=== PATIENT | female | born 1980 | race Caucasian/White ===

== ENCOUNTER 2017-02-22 07:28 | Emergency (ER) | payer BC ==
[2017-02-22 07:50] VITALS: BP 118/66
[2017-02-22] MEDS ORDERED: Ondansetron ODT TAB* 4 MG PO ONE (08:32)
[2017-02-22] MEDS ORDERED: HYDROcodone/ACETAMIN 5-325 MG* 1 TAB PO ONE (08:32)
--- NOTE | 2017-02-22 08:41 | UC ---
Back Pain HPI - HPI Summary HPI Summary: 36 yo female with the onset of colicky right flank pain about 8PM yesterday urgency and frequency of urination diaphoresis nausea no fever no vomiting some relief with motrin - History of Current Complaint Chief Complaint: UCGU Stated Complaint: BACK PAIN Time Seen by Provider: 02/22/17 07:52 Hx Obtained From: Patient Hx Last Menstrual Period: 02/07/17 Onset/Duration: Sudden Onset, Lasting Hours Timing: Constant Severity Initially: Moderate Severity Currently: Severe Pain Intensity: 8 Pain Scale Used: 0-10 Numeric Back Pain: Is Discrete @ - right CVA, Radiates To - right flank/vagina Character: Sharp, Spasmodic Aggravating: Nothing Alleviating: OTC Meds - Allergies/Home Medications Allergies/Adverse Reactions: Allergies Allergy/AdvReac Type Severity Reaction Status Date / Time No Known Allergies Allergy Verified 02/22/17 07:43 Home Medications: Home Medications Multiple Vitamins W/ Minerals [Hair Skin and Nails Formu] 1 tab PO DAILY [History Confirmed 02/22/17] PMH/Surg Hx/FS Hx/Imm Hx Previously Healthy: Yes Endocrine History Of: Denies: Diabetes, Thyroid Disease Cardiovascular History Of: Denies: Cardiac Disorders, Hypertension Respiratory History Of: Denies: COPD, Asthma GI/ History Of: Denies: Ulcer - Surgical History Surgical History: None - Family History Known Family History: Positive: Hypertension, Other - dad has kidney stones Negative: Cardiac Disease - Social History Alcohol Use: None Substance Use Type: None Smoking Status (MU): Former Smoker - Immunization History Most Recent Influenza Vaccination: 08/23/14 Most Recent Tetanus Shot: 12/17/14 Most Recent Pneumonia Vaccination: none Review of Systems Constitutional: Negative Skin: Negative Eyes: Negative ENT: Negative Respiratory: Negative Cardiovascular: Negative Gastrointestinal: Other - right flank pain Genitourinary: Frequency, Urgency Motor: Negative Neurovascular: Negative Musculoskeletal: Negative Neurological: Negative Psychological: Negative All Other Systems Reviewed And Are Negative: Yes Physical Exam Triage Information Reviewed: Yes Appearance: Well-Appearing, Well-Nourished, Pain Distress Vital Signs: Initial Vital Signs Temp 98.5 F 02/22/17 07:36 Pulse 86 02/22/17 07:36 Resp 20 02/22/17 07:36 BP 118/66 02/22/17 07:36 Pulse Ox 100 02/22/17 07:36 Vital Signs Reviewed: Yes Eyes: Positive: Conjunctiva Clear ENT: Positive: Hearing grossly normal. Negative: Tonsillar exudate, Trismus, Muffled/hoarse voice Neck: Positive: Supple, Nontender Respiratory: Positive: Lungs clear, Normal breath sounds, No respiratory distress Cardiovascular: Positive: RRR, No Murmur Abdomen Description: Positive: Nontender, No Organomegaly, Soft, CVA Tenderness (R) Bowel Sounds: Positive: Present Musculoskeletal: Positive: ROM Intact, No Edema Neurological: Positive: Alert, Muscle Tone Normal Psychological Exam: Normal Skin Exam: Normal Re-Evaluation - Re-Evaluation First Eval Re-Evaluation Time: 09:10 Change: Improved - pain still 04/03, awaiting CT results Second Eval Re-Evaluation Time: 10:50 Change: Improved - PAIN 01/01 Back Pain Course/Dx - Differential Dx/Diagnosis Provider Diagnoses: RIGHT UROLITHIASIS. MULTIPLE SMALL KIDNEY STONES Discharge - Discharge Plan Condition: Stable Disposition: HOME Prescriptions: HYDROcodone/ACETAMIN 5-325 MG* [[place] 5-325 TAB*] 1 tab PO Q4H PRN #15 tab MDD 6 PRN Reason: Pain - Severe Ibuprofen TAB* [Motrin TAB*] 600 mg PO QID #40 tab Ondansetron TAB* [Zofran Tab*] 4 mg PO Q6H PRN #10 tab PRN Reason: Nausea Tamsulosin CAP* [Flomax CAP*] 0.4 mg PO BEDTIME #5 cap Patient Education Materials: Kidney Stones (ED) Referrals: Luc Hadley MD [Medical Doctor] - As Soon As Possible (call today and set up appt UROLOGIST) Additional Instructions: to ER for: 1. fever >101 2. pain not controlled by pain medicine 3. vomiting and can't tolerate fluids or take meds drink 8-12 glasses of water /day take motrin 4x day until stone passes stop flomax once stone is passed
[2017-02-22] MEDS ORDERED: Ketorolac INJ* 30 MG/ML 1 ML VIAL IM ONE (09:09)
--- NOTE | 2017-02-22 09:35 | RAD ---
INDICATION: Right flank abdominal pain. COMPARISON: There are no prior studies available for comparison. TECHNIQUE: A CT scan of the abdomen and pelvis was performed without intravenous or oral contrast. Contiguous axial sections were obtained from the lung bases through the symphysis pubis. Images were reconstructed in the coronal and sagittal planes. FINDINGS: The lung bases are clear. No pleural effusion is present. The liver and spleen are within normal limits in size without significant focal abnormality on this noncontrast study. No calcified gallstones are seen. The pancreas appears to be within normal limits in size. The adrenal glands appear within normal limits. There multiple small bilateral renal calculi measuring up to 3 mm in size. There is enlargement of the right kidney with perinephric stranding and fluid. There is dilatation of the renal calyces pelvis and ureter. There is a 3 mm calcification in the region of the right ureterovesical junction most consistent with a calculus in the distal ureter. This causes moderate to severe right hydronephrosis. The aorta is normal in caliber without significant calcific plaque. No significant enlarged retroperitoneal lymph nodes are seen. The stomach, small and large bowel appear nondistended. The appendix is within normal limits. There is no evidence for diverticulitis or colitis. There is a moderate amount retained stool. The uterus is retroverted and normal in size. There is a small amount of free intraperitoneal fluid present dependently within the pelvis. No free intraperitoneal air is seen. No significant focal osseous abnormality is seen. IMPRESSION: 1. FINDINGS MOST CONSISTENT WITH A 3 MM CALCULUS AT THE RIGHT URETER URETEROVESICAL JUNCTION CAUSING MODERATE TO SEVERE HYDRONEPHROSIS. THERE ARE SEVERAL SMALL ADDITIONAL BILATERAL RENAL CALCULI. 2. RETROVERTED UTERUS AND SMALL AMOUNT OF FREE INTRAPERITONEAL FLUID IN THE PELVIS.
== END 2017-02-22 10:16 | disposition home or self-care (01) ==
LOC: UCEAST 07:28
DX: N13.2 Hydronephrosis with renal and ureteral calculous obstruction (principal); Z32.02 Encounter for pregnancy test, result negative; Z87.891 Personal history of nicotine dependence
CPT/HCPCS: 74176; 81003; 84702; 87077; 87086; 87186; 96372; 99212; A9270-GY; G0463; J1885

== ENCOUNTER 2017-02-26 14:46 | Observation (INO) | payer BC ==
[2017-02-26] MEDS ORDERED: NS 0.9% 1000 ML* 2,000 ML IV ONE (14:58)
[2017-02-26 16:53] LABS: Hematocrit 33 % (35-47); Hemoglobin 11.3 g/dl (12.0-16.0); Mean Corpuscular HGB Conc 34 g/dl (31-36); Mean Corpuscular Hemoglobin 30 pg (27-31); Mean Corpuscular Volume 87 fL (80-97); Mean Platelet Volume 9 um3 (7.4-10.4); Red Cell Distribution Width 14 % (10.5-15); White Blood Count 17.7 10^3/ul (3.5-10.8)
[2017-02-26 16:56] LABS: Urine Bacteria Absent (Absent); Urine Bilirubin Negative (Negative); Urine Glucose Negative (Negative); Urine Nitrite Negative (Negative)
[2017-02-26 16:58] LABS: Add Diff/Slide Review? Slide Review Added; Comments Flag Yes
[2017-02-26] MEDS ORDERED: cefTRIAXone VIAL(*) 1,000 MG VIAL ONE (17:01)
[2017-02-26 17:20] LABS: Albumin 3.2 g/dL (3.2-5.2); BUN/Creatinine Ratio 23.8 (8-20); EGFR African American 64.9 (>60); EGFR Non-African American 50.5 (>60); Globulin 3.4 g/dL (2-4); Potassium 3.3 mmol/L (3.5-5.0); Total Bilirubin 0.6 mg/dL (0.2-1.0); Total Protein 6.6 g/dL (6.4-8.9)
[2017-02-26] MEDS ORDERED: Potassium Chlor TAB* 20 MEQ TAB.ER PO ONE (18:30)
[2017-02-26] MEDS: Acetaminophen TAB* 325 MG PO PRN (20:10)
--- NOTE | 2017-02-26 21:14 | RAD ---
HISTORY: Abnormal labs, UTI COMPARISONS: February 22, 2017 CT TECHNIQUE: Multiple transverse and longitudinal ultrasound images were obtained of the kidneys and bladder using grayscale and color Doppler imaging. FINDINGS: RIGHT KIDNEY: The right kidney is echogenic and enlarged. The hydronephrosis noted on the previous CT is no longer evident. There is no appreciable nephrolithiasis on the submitted images. The right kidney measures 14.4 x 7.6 x 7.7 cm. There are no loculated fluid collections. There is no perinephric fluid collection. LEFT KIDNEY: The left kidney is normal in shape, size, contour, and echogenicity. There is no hydronephrosis or nephrolithiasis. The left kidney measures 11.3 x 5.3 x 6.5 cm. BLADDER: The bladder is smooth in contour. Bilateral ureteral jets are identified. AORTA AND IVC: No images are submitted of the vasculature. RETROPERITONEUM: Unremarkable. OTHER: None. IMPRESSION: THE RIGHT KIDNEY IS EDEMATOUS, CONSISTENT WITH THE HISTORY OF PYELONEPHRITIS. THE HYDRONEPHROSIS NOTED ON THE PREVIOUS EXAMINATION IS NO LONGER EVIDENT. BILATERAL URETERAL JETS ARE IDENTIFIED.
[2017-02-26] MEDS: NS 0.9% 1000 ML* 1,000 ML IV SCH (21:25)
--- NOTE | 2017-02-26 21:31 | HP ---
HOSPITAL MEDICINE HISTORY AND PHYSICAL: DATE OF ADMISSION: 02/26/17 PRIMARY CARE PHYSICIAN: Herb Castillo MD ATTENDING PHYSICIAN: Duyen Jensen DO *(dictation provided by Andra Villasenor NP) CHIEF COMPLIANT: Concern for possible rigors in the patient with recent kidney stones and hydronephrosis. HISTORY OF PRESENT ILLNESS: Ms. Yanez is a 36-year-old female with no significant past medical history who presented to the hospital today from Dr. Castillo's office out of concern for lightheadedness and question of rigors in the setting of recent kidney stone with hydronephrosis. Ms. Yanez states that she started to feel unwell on Wednesday of this past week. She had a sudden onset of severe pain, which seemed to be emanating from her pelvis and then into her back. She was in excruciating pain when she arrived to community health care at 7 a.m. on Wednesday morning. A CT of the abdomen of the pelvis at that time revealed that she did have a kidney stone with hydronephrosis. She followed up with Dr. Castillo, who saw her and apparently felt that the stone had passed based on his review and workup. I do not have records from Dr. Castillo to confirm this. Regardless, the patient states that she went home from Dr. Castillo's office, but was called thereafter to say that her urine culture had become positive. At that point, the patient was started on cephalexin. She states she started this medication on Wednesday night, and has taken it regularly since then. She stopped having pain on Wednesday; however, she has continued to feel lightheaded. She has been alternating with feeling warm and then feeling cold and shaking. She appears to be describing fevers with rigors , but she did not take her temperature. She followed up with Dr. Castillo's office today, and there was concern that in addition to kidney stone there was some free intraperitoneal fluid as well as the fact that the patient seemed to be evidencing sepsis criteria. Per the report from the patient, Dr. Castillo did 2 ultrasounds in the office, which did not show kidney stone or obstruction. In the emergency room, Ms. Yanez has a white blood cell count elevated to 17.7. She has thrombocytopenia with the platelet count of 64. She has a sodium of 129, potassium of 3.3, BUN and creatinine elevated to 29/1.22. Her urine shows only 1+ leukocyte esterase with no bacteria. PAST MEDICAL HISTORY: None. MEDICATIONS: Ibuprofen p.r.n. and multivitamin p.o. daily. ALLERGIES: None. FAMILY HISTORY: The patient reports her father and mother are both alive. Her dad has history of kidney stones and mom is otherwise healthy. SOCIAL HISTORY: No report of alcohol, tobacco, or drug use. She lives with her , who is her healthcare proxy. REVIEW OF SYSTEMS: A 14-point review of systems was completed with Ms. Yanez and all those not mentioned above were negative. PHYSICAL EXAMINATION GENERAL: Ms. Yanez is sitting up in the stretcher. She is in no acute distress. She appears calm and pleasant. VITAL SIGNS: Temperature 98.9, pulse rate 130, respiratory rate 16, O2 saturation 100% on room air, and blood pressure 137/73. LUNGS: Clear to auscultation bilaterally with no accessory muscle use and good aeration. HEART: S1 and S2. No murmur, rub, or gallop and regular. ABDOMEN: Soft. It is nontender with bowel sounds positive x4. EXTREMITIES: No cyanosis or edema. NEURO: She is alert and oriented x3. She moves all extremities equally. There is no facial asymmetry or focal weakness. Extraocular movements are intact. SKIN: Intact. DIAGNOSTIC STUDIES/LAB DATA: WBC 17.7, hemoglobin 11.3, hematocrit 33, and platelet count 64. Sodium 129, potassium 3.3, chloride 97, serum bicarbonate 23 , BUN 29, creatinine 1.22, glucose 114. Urine shows +1 leuk esterase, present squamous cells and no bacteria. Review of previous specimen shows E. coli from 02/22/17 that is sensitive to cephalosporins. EKG shows heart rate of about 115 with no evidence of ischemia. ASSESSMENT AND PLAN: Ms. Yanez is a 36-year-old female with no significant past medical history, who was recently diagnosed with kidney stone with hydronephrosis earlier this week and now presents with concern for symptoms of sepsis. Our plans are for observation in the hospital for the followin. Sepsis secondary to pyelonephritis: Per the report verbally from Dr. Kraft and from the patient, the patient did have ultrasounds at Dr. Castillo's office , which confirmed presence of ureteral jets. In an effort to confirm this definitively for this patient who is septic and at high risk for complications, plan to repeat a ultrasound now. The patient will be treated with ceftriaxone while inpatient given the severity of her illness. She will have continued IV fluids overnight. Plan to check blood cultures. Urine cultures were already being sent. Lactic acid is normal. 2. Acute kidney injury: I do not have a baseline creatinine for Ms. Yanez , but I have no reason to suspect that she has chronic kidney disease at 36 years of age with no other prior medical history. I suspect this is secondary to dehydration. At this point, plan to rehydrate. She has had 2 L of IV fluids and we will continue with maintenance fluids overnight and recheck all her labs tomorrow. 3. Hypokalemia: Plan to replete and recheck in the a.m. 4. Thrombocytopenia: The patient's platelet count is 64, last known from 2014 was normal at 236. I suspect this is all reactive secondary to her sepsis, but we will recheck all her labs tomorrow. I am holding chemical prophylaxis for DVT and using SCDs only. 5. DVT prophylaxis: With SCDs. 6. Code status: Full code. TIME SPENT: Approximately 60 minutes was spent in the admission of this patient , more than half of the time was spent with the patient at the bedside reviewing the events leading up to this hospitalization, performing the physical examination, and reviewing my plan of care. ANDRA VILLASENOR NP CC: Herb Castillo MD * [id number]/[facility] #: [id number] ISIDRO
--- NOTE | 2017-02-26 23:15 | ED ---
Elio Sampson Benjamin, scribed for Evans Kraft MD on 02/26/17 at 1646 . GI/ HPI - HPI Summary HPI Summary: 36yo female who presents with continued complaints of UTI symptoms. States she had kidney stone and passed it yesterday. Pt reports cycles of chills and hot/ diaphoretic, and lightheadedness, dizziness, and fatigue. Pt is sent from Dr. Castillo. Pt denies pain but can feel fluid in her bladder. - History of Current Complaint Chief Complaint: EDGeneral Time Seen by Provider: 02/26/17 14:58 Stated Complaint: LIGHT HEADED,FULID IN PELVIS COMMMING FROM DOC OFF Hx Obtained From: Patient Onset/Duration: Started Days Ago, Still Present Timing: Constant Current Severity: None Associated Signs and Symptoms: Positive: Dizziness, Weakness, Fever, Chills, UTI Symptoms - Allergy/Home Medications Allergies/Adverse Reactions: Allergies Allergy/AdvReac Type Severity Reaction Status Date / Time No Known Allergies Allergy Verified 02/22/17 07:43 PMH/Surg Hx/FS Hx/Imm Hx Endocrine/Hematology History: Denies: Hx Diabetes, Hx Thyroid Disease Cardiovascular History: Denies: Hx Hypertension Respiratory History: Denies: Hx Asthma, Hx Chronic Obstructive Pulmonary Disease (COPD) GI History: Denies: Hx Ulcer Infectious Disease History: No Infectious Disease History: Denies: Hx Clostridium Difficile, Hx Hepatitis, Hx Human Immunodeficiency Virus (HIV), Hx of Known/Suspected MRSA, Hx Shingles, Hx Tuberculosis, Hx Known/ Suspected VRE, Traveled Outside the [place] in Last 30 Days - Family History Known Family History: Positive: Hypertension, Other - dad has kidney stones Negative: Cardiac Disease - Social History Occupation: Employed Full-time Lives: With Family Alcohol Use: None Substance Use Type: Reports: None Smoking Status (MU): Former Smoker Review of Systems Positive: Fever, Chills, Fatigue, Skin Diaphoresis Eyes: Negative ENT: Negative Cardiovascular: Negative Respiratory: Negative Gastrointestinal: Negative Genitourinary: Other - UTI symptoms Musculoskeletal: Negative Skin: Negative Positive: Weakness Psychological: Normal All Other Systems Reviewed And Are Negative: Yes Physical Exam Triage Information Reviewed: Yes Vital Signs On Initial Exam: Initial Vitals Temp Pulse Resp BP Pulse Ox 98.9 F 130 20 137/73 100 02/26/17 14:56 02/26/17 14:56 02/26/17 14:56 02/26/17 14:56 02/26/17 14:56 Vital Signs Reviewed: Yes Appearance: Positive: Well-Appearing, No Pain Distress, Well-Nourished Skin: Positive: Warm, Skin Color Reflects Adequate Perfusion, Dry Eyes: Positive: Normal, EOMI, MARVIN ENT: Positive: Normal ENT inspection Neck: Positive: Supple, Nontender Respiratory/Lung Sounds: Positive: Clear to Auscultation Cardiovascular: Positive: RRR Abdomen Description: Positive: Nontender, No Organomegaly Bowel Sounds: Positive: Present Musculoskeletal: Positive: Normal, Strength/ROM Intact Neurological: Positive: Normal, Sensory/Motor Intact, Alert, Oriented to Person Place, Time, CN Intact II-III Psychiatric: Positive: Affect/Mood Appropriate Diagnostics - Vital Signs Vital Signs Temp Pulse Resp BP Pulse Ox 02/26/17 15:00 98.9 F 130 16 137/73 100 02/26/17 14:56 98.9 F 130 20 137/73 100 - Laboratory Lab Results: Lab Results 02/26/17 02/26/17 02/26/17 Range/Units 16:42 16:42 16:42 WBC 17.7 H (3.5-10.8) 10^3/ul RBC 3.80 L (4.0-5.4) 10^6/ul Hgb 11.3 L (12.0-16.0) g/dl Hct 33 L (35-47) % MCV 87 (80-97) fL MCH 30 (27-31) pg MCHC 34 (31-36) g/dl RDW 14 (10.5-15) % Plt Count 64 L (150-450) 10^3/ul MPV 9 (7.4-10.4) um3 Neut % (Auto) 81.5 (38-83) % Lymph % (Auto) 3.5 L (25-47) % [place] % (Auto) 14.5 H (1-9) % Eos % (Auto) 0.3 (0-6) % Baso % (Auto) 0.2 (0-2) % Absolute Neuts (auto) 14.5 H (1.5-7.7) 10^3/ul Absolute Lymphs (auto) 0.6 L (1.0-4.8) 10^3/ul Absolute Monos (auto) 2.6 H (0-0.8) 10^3/ul Absolute Eos (auto) 0 (0-0.6) 10^3/ul Absolute Basos (auto) 0 (0-0.2) 10^3/ul Absolute Nucleated RBC 0.01 10^3/ul Nucleated RBC % 0 Sodium 129 L (133-145) mmol/L Potassium 3.3 L (3.5-5.0) mmol/L Chloride 97 L (101-111) mmol/L Carbon Dioxide 23 (22-32) mmol/L Anion Gap 9 (2-11) mmol/L BUN 29 H (6-24) mg/dL Creatinine 1.22 H (0.51-0.95) mg/dL Est GFR ( Amer) 64.9 (>60) Est GFR (Non-Af Amer) 50.5 (>60) BUN/Creatinine Ratio 23.8 H (8-20) Glucose 114 H (70-100) mg/dL Lactic Acid (0.5-2.0) mmol/L Calcium 9.0 (8.6-10.3) mg/dL Total Bilirubin 0.60 (0.2-1.0) mg/dL AST 38 (13-39) U/L ALT 33 (7-52) U/L Alkaline Phosphatase 128 H (34-104) U/L Total Protein 6.6 (6.4-8.9) g/dL Albumin 3.2 (3.2-5.2) g/dL Globulin 3.4 (2-4) g/dL Albumin/Globulin Ratio 0.9 L (1-3) Urine Color Yellow Urine Appearance Cloudy Urine pH 6.0 (5-9) Ur Specific [place] 1.013 (1.010-1.030) Urine Protein 2+(100 mg/dl) H (Negative) Urine Ketones Negative (Negative) Urine Blood 2+ H (Negative) Urine Nitrate Negative (Negative) Urine Bilirubin Negative (Negative) Urine Urobilinogen Negative (Negative) Ur Leukocyte Esterase 1+ H (Negative) Urine WBC (Auto) 3+(>20/hpf) H (Absent) Urine RBC (Auto) 2+(6-10/hpf) H (Absent) Ur Squamous Epith Cells Present H (Absent) Urine Bacteria Absent (Absent) Urine Glucose Negative (Negative) 02/26/17 Range/Units 16:42 WBC (3.5-10.8) 10^3/ul RBC (4.0-5.4) 10^6/ul Hgb (12.0-16.0) g/dl Hct (35-47) % MCV (80-97) fL MCH (27-31) pg MCHC (31-36) g/dl RDW (10.5-15) % Plt Count (150-450) 10^3/ul MPV (7.4-10.4) um3 Neut % (Auto) (38-83) % Lymph % (Auto) (25-47) % [place] % (Auto) (1-9) % Eos % (Auto) (0-6) % Baso % (Auto) (0-2) % Absolute Neuts (auto) (1.5-7.7) 10^3/ul Absolute Lymphs (auto) (1.0-4.8) 10^3/ul Absolute Monos (auto) (0-0.8) 10^3/ul Absolute Eos (auto) (0-0.6) 10^3/ul Absolute Basos (auto) (0-0.2) 10^3/ul Absolute Nucleated RBC 10^3/ul Nucleated RBC % Sodium (133-145) mmol/L Potassium (3.5-5.0) mmol/L Chloride (101-111) mmol/L Carbon Dioxide (22-32) mmol/L Anion Gap (2-11) mmol/L BUN (6-24) mg/dL Creatinine (0.51-0.95) mg/dL Est GFR ( Amer) (>60) Est GFR (Non-Af Amer) (>60) BUN/Creatinine Ratio (8-20) Glucose (70-100) mg/dL Lactic Acid 0.8 (0.5-2.0) mmol/L Calcium (8.6-10.3) mg/dL Total Bilirubin (0.2-1.0) mg/dL AST (13-39) U/L ALT (7-52) U/L Alkaline Phosphatase (34-104) U/L Total Protein (6.4-8.9) g/dL Albumin (3.2-5.2) g/dL Globulin (2-4) g/dL Albumin/Globulin Ratio (1-3) Urine Color Urine Appearance Urine pH (5-9) Ur Specific [place] (1.010-1.030) Urine Protein (Negative) Urine Ketones (Negative) Urine Blood (Negative) Urine Nitrate (Negative) Urine Bilirubin (Negative) Urine Urobilinogen (Negative) Ur Leukocyte Esterase (Negative) Urine WBC (Auto) (Absent) Urine RBC (Auto) (Absent) Ur Squamous Epith Cells (Absent) Urine Bacteria (Absent) Urine Glucose (Negative) Result Diagrams: 02/26/17 16:42 02/26/17 16:42 Lab Statement: Any lab studies that have been ordered have been reviewed, and results considered in the medical decision making process. GIGU Course/Dx - Course Course Of Treatment: Ms. Yanez met sepsis criteria on arrival and was treated with fluids and antibiotics. - Diagnoses Provider Diagnoses: UTI (urinary tract infection), Sepsis - Physician Notifications Discussed Care Of Patient With: Dr. Masterson (hospitalist) @[id number]. - Critical Care Time Critical Care Time: 30-74 min Discharge - Discharge Plan Condition: Stable Disposition: ADMITTED TO [facility] documentation as recorded by the Elio horton Benjamin accurately reflects the service I personally performed and the decisions made by , Evans Kraft MD.
[2017-02-27] MEDS: Acetaminophen TAB* 325 MG PO PRN (03:58)
[2017-02-27 06:03] LABS: Comments Flag Yes; Hematocrit 28 % (35-47); Hemoglobin 9.4 g/dl (12.0-16.0); Mean Corpuscular HGB Conc 34 g/dl (31-36); Mean Corpuscular Hemoglobin 30 pg (27-31); Mean Corpuscular Volume 88 fL (80-97); Mean Platelet Volume 9 um3 (7.4-10.4); Red Blood Count 3.16 10^6/ul (4.0-5.4); Red Cell Distribution Width 14 % (10.5-15); White Blood Count 13.6 10^3/ul (3.5-10.8)
[2017-02-27 06:08] LABS: BUN/Creatinine Ratio 21.8 (8-20); Calcium 7.9 mg/dL (8.6-10.3); EGFR African American 80.7 (>60); EGFR Non-African American 62.7 (>60); Potassium 3.8 mmol/L (3.5-5.0)
[2017-02-27] MEDS: NS 0.9% 1000 ML* 1,000 ML IV SCH (07:53)
--- NOTE | 2017-02-27 10:35 | PN ---
Subjective Date of Service: 02/27/17 Interval History: Pt is feeling well. She states in fact she feels "excellent." She did have a fever early this AM but despite that she had no symptoms. She states she slept very poorly. She denies any pain. Objective Active Medications: Acetaminophen (Tylenol Tab*) 650 mg PO Q6H PRN PRN Reason: pain/fever Last Admin: 02/27/17 03:58 Dose: 650 mg Ceftriaxone Sodium 1,000 mg/ (Sodium Chloride) 50 mls @ 200 mls/hr IVPB Q24H [facility] Vital Signs 02/26/17 02/26/17 02/26/17 19:46 20:00 23:32 Temperature 100.2 F 99.3 F Pulse Rate 113 84 Respiratory 19 19 16 Rate Blood Pressure 103/73 89/48 (mmHg) O2 Sat by Pulse 96 97 Oximetry 02/26/17 02/27/17 02/27/17 23:33 03:54 04:50 Temperature 102.1 F 102 F Pulse Rate 101 Respiratory 16 Rate Blood Pressure 96/58 107/67 (mmHg) O2 Sat by Pulse 100 Oximetry 02/27/17 02/27/17 02/27/17 05:44 07:28 07:59 Temperature 99.8 F 98.1 F Pulse Rate 79 Respiratory 20 Rate Blood Pressure 108/59 (mmHg) O2 Sat by Pulse 97 97 Oximetry Oxygen Devices in Use Now: None Appearance: Young thin female sitting up in bed, NAD Eyes: No Scleral Icterus Ears/Nose/Mouth/Throat: Mucous Membranes Moist Respiratory: Symmetrical Chest Expansion and Respiratory Effort, Clear to Auscultation - few fine RLL crackles Cardiovascular: NL Sounds; No Murmurs; No JVD, RRR, No Edema Abdominal: NL Sounds; No Tenderness; No Distention Extremities: No Clubbing, Cyanosis Skin: No Rash or Ulcers, No Nodules or Sclerosis Neurological: Alert and Oriented x 3 Result Diagrams: 02/27/17 05:24 02/27/17 05:24 Additional Lab and Data: Lab Results 02/26/17 02/26/17 02/26/17 Range/Units 16:42 16:42 16:42 WBC 17.7 H (3.5-10.8) 10^3/ul RBC 3.80 L (4.0-5.4) 10^6/ul Hgb 11.3 L (12.0-16.0) g/dl Hct 33 L (35-47) % MCV 87 (80-97) fL MCH 30 (27-31) pg MCHC 34 (31-36) g/dl RDW 14 (10.5-15) % Plt Count 64 L (150-450) 10^3/ul MPV 9 (7.4-10.4) um3 Neut % (Auto) 81.5 (38-83) % Lymph % (Auto) 3.5 L (25-47) % [place] % (Auto) 14.5 H (1-9) % Eos % (Auto) 0.3 (0-6) % Baso % (Auto) 0.2 (0-2) % Absolute Neuts (auto) 14.5 H (1.5-7.7) 10^3/ul Absolute Lymphs (auto) 0.6 L (1.0-4.8) 10^3/ul Absolute Monos (auto) 2.6 H (0-0.8) 10^3/ul Absolute Eos (auto) 0 (0-0.6) 10^3/ul Absolute Basos (auto) 0 (0-0.2) 10^3/ul Absolute Nucleated RBC 0.01 10^3/ul Nucleated RBC % 0 Sodium 129 L (133-145) mmol/L Potassium 3.3 L (3.5-5.0) mmol/L Chloride 97 L (101-111) mmol/L Carbon Dioxide 23 (22-32) mmol/L Anion Gap 9 (2-11) mmol/L BUN 29 H (6-24) mg/dL Creatinine 1.22 H (0.51-0.95) mg/dL Est GFR ( Amer) 64.9 (>60) Est GFR (Non-Af Amer) 50.5 (>60) BUN/Creatinine Ratio 23.8 H (8-20) Glucose 114 H (70-100) mg/dL Lactic Acid (0.5-2.0) mmol/L Calcium 9.0 (8.6-10.3) mg/dL Total Bilirubin 0.60 (0.2-1.0) mg/dL AST 38 (13-39) U/L ALT 33 (7-52) U/L Alkaline Phosphatase 128 H (34-104) U/L Total Protein 6.6 (6.4-8.9) g/dL Albumin 3.2 (3.2-5.2) g/dL Globulin 3.4 (2-4) g/dL Albumin/Globulin Ratio 0.9 L (1-3) Urine Color Yellow Urine Appearance Cloudy Urine pH 6.0 (5-9) Ur Specific [place] 1.013 (1.010-1.030) Urine Protein 2+(100 mg/dl) H (Negative) Urine Ketones Negative (Negative) Urine Blood 2+ H (Negative) Urine Nitrate Negative (Negative) Urine Bilirubin Negative (Negative) Urine Urobilinogen Negative (Negative) Ur Leukocyte Esterase 1+ H (Negative) Urine WBC (Auto) 3+(>20/hpf) H (Absent) Urine RBC (Auto) 2+(6-10/hpf) H (Absent) Ur Squamous Epith Cells Present H (Absent) Urine Bacteria Absent (Absent) Urine Glucose Negative (Negative) 02/26/17 Range/Units 16:42 WBC (3.5-10.8) 10^3/ul RBC (4.0-5.4) 10^6/ul Hgb (12.0-16.0) g/dl Hct (35-47) % MCV (80-97) fL MCH (27-31) pg MCHC (31-36) g/dl RDW (10.5-15) % Plt Count (150-450) 10^3/ul MPV (7.4-10.4) um3 Neut % (Auto) (38-83) % Lymph % (Auto) (25-47) % [place] % (Auto) (1-9) % Eos % (Auto) (0-6) % Baso % (Auto) (0-2) % Absolute Neuts (auto) (1.5-7.7) 10^3/ul Absolute Lymphs (auto) (1.0-4.8) 10^3/ul Absolute Monos (auto) (0-0.8) 10^3/ul Absolute Eos (auto) (0-0.6) 10^3/ul Absolute Basos (auto) (0-0.2) 10^3/ul Absolute Nucleated RBC 10^3/ul Nucleated RBC % Sodium (133-145) mmol/L Potassium (3.5-5.0) mmol/L Chloride (101-111) mmol/L Carbon Dioxide (22-32) mmol/L Anion Gap (2-11) mmol/L BUN (6-24) mg/dL Creatinine (0.51-0.95) mg/dL Est GFR ( Amer) (>60) Est GFR (Non-Af Amer) (>60) BUN/Creatinine Ratio (8-20) Glucose (70-100) mg/dL Lactic Acid 0.8 (0.5-2.0) mmol/L Calcium (8.6-10.3) mg/dL Total Bilirubin (0.2-1.0) mg/dL AST (13-39) U/L ALT (7-52) U/L Alkaline Phosphatase (34-104) U/L Total Protein (6.4-8.9) g/dL Albumin (3.2-5.2) g/dL Globulin (2-4) g/dL Albumin/Globulin Ratio (1-3) Urine Color Urine Appearance Urine pH (5-9) Ur Specific [place] (1.010-1.030) Urine Protein (Negative) Urine Ketones (Negative) Urine Blood (Negative) Urine Nitrate (Negative) Urine Bilirubin (Negative) Urine Urobilinogen (Negative) Ur Leukocyte Esterase (Negative) Urine WBC (Auto) (Absent) Urine RBC (Auto) (Absent) Ur Squamous Epith Cells (Absent) Urine Bacteria (Absent) Urine Glucose (Negative) Assess/Plan/Problems-Billing Ms Yanez is a 36 yo F who has no significant PMHx initially presented [facility] care on 02/22/17 with c/o groin/back pain and was found to have a kidney stone. She saw Dr. Castillo in follow up on 02/24/17 where it was felt her stone had passed and the hydronephrosis seen on 02/22/17 had resolved. Shortly after she left his office her urine culture came back positive and she was started on keflex. She followed up with Dr. Castillo 02/26/17 and was noted to be septic and sent to the ER for evaluation. - Patient Problems (1) Sepsis Current Visit: Yes Status: Acute Comment: On admission the patient's SOFA score is elevated at 4. The patient is felt to be septic secondary to Ecoli pyelonephritis. (2) Pyelonephritis due to Escherichia coli Current Visit: Yes Status: Acute Code(s): N12 - TUBULO-INTERSTITIAL NEPHRITIS, NOT SPCF ACUTE OR CHRONIC; B96.20 - UNSP ESCHERICHIA COLI THE CAUSE OF DISEASES CLASSD LYNNEugene SNOMED Code(s): 79957614 Comment: The patient's urine from 02/22/17 grew brink-sensitive E coli. She was started on keflex 02/24/17. Despite this her WBC count was markedly elevated on admission and she has remained febrile. Last fever was early this AM. She feels quite good and would like to go home. Will watch her temp and labs through today and if afebrile with improvement in her plt count will d/c home this evening and her get close follow up with her PCP. Will extend the duration of Abx therapy to 2 weeks. (3) Thrombocytopenia Current Visit: Yes Status: Acute Code(s): D69.6 - THROMBOCYTOPENIA, UNSPECIFIED SNOMED Code(s): 228838857 Comment: Likely secondary to infection and sepsis. I suspect the drop this morning was likely dilutional but will get follow up CBC this evening and if the plt are better will possibly let the patient go home with close outpatient follow up. (4) Hyponatremia Current Visit: Yes Status: Acute Code(s): E87.1 - HYPO-OSMOLALITY AND HYPONATREMIA SNOMED Code(s): 16765843 Comment: Resolved after hydration. (5) SEAN (acute kidney injury) Current Visit: Yes Status: Acute Code(s): N17.9 - ACUTE KIDNEY FAILURE, UNSPECIFIED SNOMED Code(s): 23974243 Comment: Resolved after hydration. (6) DVT prophylaxis Current Visit: Yes Status: Acute Code(s): RNR5534 - SNOMED Code(s): 484954339 Comment: SCDs/ambulation (7) Patient is full code Current Visit: Yes Status: Acute Code(s): Z78.9 - OTHER SPECIFIED HEALTH STATUS SNOMED Code(s): 745045396
[2017-02-27 12:19] VITALS: BP 103/63
[2017-02-27 16:56] LABS: Comments Flag Yes; Hematocrit 29 % (35-47); Hemoglobin 9.7 g/dl (12.0-16.0); Mean Corpuscular HGB Conc 33 g/dl (31-36); Mean Corpuscular Hemoglobin 29 pg (27-31); Mean Corpuscular Volume 88 fL (80-97); Mean Platelet Volume 9 um3 (7.4-10.4); Red Blood Count 3.32 10^6/ul (4.0-5.4); Red Cell Distribution Width 14 % (10.5-15); White Blood Count 11.6 10^3/ul (3.5-10.8)
[2017-02-27] MEDS ORDERED: cefTRIAXone VIAL(*) 1,000 MG in NS 0.9% 50 ML* 50 ML IVPB SCH (17:00)
[2017-02-27 17:05] LABS: BUN/Creatinine Ratio 19.6 (8-20); Calcium 8.2 mg/dL (8.6-10.3); EGFR African American 89.9 (>60); EGFR Non-African American 69.9 (>60); Potassium 3.9 mmol/L (3.5-5.0)
--- NOTE | 2017-02-28 05:18 | DS ---
DISCHARGE SUMMARY: DATE OF ADMISSION: 02/26/17 DATE OF DISCHARGE: 02/27/17 PRIMARY CARE PROVIDER: NICOLE Carpenter UROLOGIST: Herb Castillo MD PRINCIPAL DIAGNOSIS: Sepsis secondary to Escherichia coli pyelonephritis. SECONDARY DIAGNOSIS: Thrombocytopenia - likely secondary to sepsis. DISCHARGE MEDICATIONS: 1. Zofran 4 mg p.o. q.6 hours p.r.n. nausea. 2. Multivitamin one tab p.o. daily. 3. Ibuprofen 600 mg p.o. 4 times a day p.r.n. pain. 4. [place] 5/325 mg one tab p.o. q.4 hours p.r.n. pain. 5. Keflex 500 mg p.o. t.i.d. x14 days (the patient will be completing course of antibiotics prescribed Dr. Castillo and myself). HOSPITAL COURSE: Ms. Yanez is a 36-year-old female who presented to emergency room from Dr. Castillo's office on 02/26/17 for evaluation of sepsis. The patient was seen at the [facility] office on 02/22/17 for complaints of groin pain and flank pain. At that time, she was identified to have kidney stone hydronephrosis. The patient was discharged from [facility] and followed up with Dr. Castillo on 02/24/17. At that point, it was felt that her stone had passed. After leaving that appointment, she was immediately contacted by Dr. Castillo's office stating that her urine culture was positive and she was prescribed Keflex. The patient started this on evening of . She followed up with Dr. Castillo again on 02/26/17 from which time there were concerns for sepsis. The patient was referred to the emergency room where she was identified to be febrile up to 100.2. Additionally, she had a marked leukocytosis of 17,000 as well as marked thrombocytopenia with the platelet count of 64,000. The patient was admitted for evaluation and treatment of sepsis secondary to E. coli pyelonephritis. The patient was started on ceftriaxone. Her white blood cell count has trended down to 11.6 on the afternoon of discharge. I was most concerned about her platelet count continuing to fall; however, short-term followup labs revealed that her platelet count was in fact improving and was up to 70,000 on the afternoon of discharge. The patient is still having low grade fevers, which likely goes along with her diagnosis of pyelonephritis. The patient had blood cultures done from the emergency room. I will follow these up over the next 24 hours and if they come positive, I will contact the patient to inform her of this. The patient will already to be treated for two weeks with Keflex for the E. coli pyelonephritis. I have asked that the patient get a followup CBC on . I have also asked the patient to followup with her primary care provider very early next week. FOLLOW CONCERNS: At this point, the patient is thought to be stable for discharge home today, 02/27/17. ACTIVITY: As tolerated. DIET: Regular. CONDITION ON DISCHARGE: Stable. TIME SPENT: 35 minutes was spent discharging this patient. CC: NICOLE Carpenter* [id number]/CPS #: [id number] MTDD
== END 2017-02-27 18:15 | disposition home or self-care (01) ==
LOC: ED 14:46 → MEDTELE 18:17
PROVIDERS: ADMIT Hospitalist; ATTEND Hospitalist
DX: A41.9 Sepsis, unspecified organism (principal); N10 Acute pyelonephritis; B96.20 Unspecified Escherichia coli [E. coli] as the cause of diseases classified elsewhere; D69.6 Thrombocytopenia, unspecified; E87.1 Hypo-osmolality and hyponatremia; N17.9 Acute kidney failure, unspecified; R00.0 Tachycardia, unspecified; Z87.442 Personal history of urinary calculi; Z87.891 Personal history of nicotine dependence
CPT/HCPCS: 36415; 76775; 80048; 80053; 81003; 81015; 83605; 85025; 85027; 87040; 87086; 93005; 96361; 96365; 96366; 99291; A9270-GY; G0378; J0696